=== PATIENT | male | born 1980 | race Hispanic/Latino ===

== ENCOUNTER 2020-01-12 02:58 | Emergency (ER) | payer BC ==
[2020-01-12] MEDS ORDERED: PROCHLORPERAZINE EDISYLATE 10 MG/2 ML VIAL ONE (03:34)
[2020-01-12] MEDS ORDERED: DiphenhydrAMINE HCL 50 MG/ML VIAL ONE (03:34)
[2020-01-12] MEDS ORDERED: KETOROLAC TROMETHAMINE 30MG/ML ONE (03:34)
== END 2020-01-12 04:33 | disposition home or self-care (01) ==
LOC: EDH 02:58
DX: R51 Headache (principal)
CPT/HCPCS: 70450; 96374; 96375; 99284; J0780; J1200; J1885

== ENCOUNTER 2023-12-30 12:49 | Emergency (ER) | payer BC, OTHER ==
[~2023-12-30] VITALS: Ht 170.2 cm; Wt 115.7 kg
[2023-12-30 13:23] LABS: RAPID GROUP A STREP negative (NEGATIVE)
[2023-12-30 13:25] LABS: SARS-CoV-2, RNA, NAAT NEGATIVE SARS CoV-2 (NEGATIVE)
[2023-12-30 13:32] LABS: INFLUENZA TYPE A Negative For Type A (NEGATIVE); INFLUENZA TYPE B Negative For Type B (NEGATIVE)
[2023-12-30 13:32] LABS: BASOPHILS # (AUTO) 0.06 K/uL (0.00-0.20); BASOPHILS % (AUTO) 0.4 % (0.0-5.0); EOSINOPHILS # (AUTO) 0.05 K/uL (0.00-0.70); EOSINOPHILS % (AUTO) 0.3 % (0.0-8.0); HEMATOCRIT 43.8 % (42-54); IMMATURE GRANULOCYTE ABSOLUTE 0.06 K/uL (0-1); LYMPHOCYTES # (AUTO) 2.1 K/uL (1.0-4.8); LYMPHOCYTES % (AUTO) 13.8 % (21.0-51.0); MEAN CORPUSCULAR HGB CONC 34.5 g/dL (32.0-36.0); MEAN CORPUSCULAR VOLUME 86.9 fL (79-99); MONOCYTES # (AUTO) 0.7 K/uL (0.1-1.0); MONOCYTES % (AUTO) 4.5 % (3.0-13.0); NEUTROPHILS # (AUTO) 12.2 K/uL (1.8-7.7); NEUTROPHILS % (AUTO) 80.6 % (40.0-77.0); PLATELET COUNT (AUTO) 229 K/uL (130-400); RED BLOOD CELL COUNT(AUTO) 5.04 MIL/uL (4.50-6.20); RED CELL DISTRIBUTION WIDTH 13.1 % (11.0-15.5); WHITE BLOOD COUNT (AUTO) 15.2 K/uL (4.8-10.8)
[2023-12-30 13:35] LABS: CREATININE 0.8 mg/dL (0.5-1.3); POTASSIUM 3.8 mmol/L (3.5-5.1)
[2023-12-30 13:39] LABS: ALBUMIN 4.2 g/dL (3.5-5.0); TOTAL PROTEIN, SERUM 8.3 g/dL (6.0-8.3)
[2023-12-30] MEDS: CEFTRIAXONE 1G VIAL IVPB ONE (14:04)
[2023-12-30] MEDS: 0.9%NACL 1000ML 1,000 ML IV ONE (14:04)
[2023-12-30] MEDS ORDERED: AMOX1TAB16 PO (15:56)
[2023-12-30] MEDS ORDERED: GUAI600T50 PO (15:56)
[2023-12-30] MEDS ORDERED: BENZ-39 PO (15:56)
[2023-12-30 16:24] VITALS: BP 152/86; PULSE 88; RESP 18; O2SAT 95
== END 2023-12-30 16:26 | disposition home or self-care (01) ==
LOC: EDH 12:49
DX: J20.8 Acute bronchitis due to other specified organisms (principal); B96.89 Other specified bacterial agents as the cause of diseases classified elsewhere; Z20.822 Contact with and (suspected) exposure to COVID-19; Z79.899 Other long term (current) drug therapy
CPT/HCPCS: 99284; 96365; 71045; 87635; 96366; 80053; 85025; 87040 ×2; 87880; 87804 ×2; 83605; 36415; J7030; J0696